=== PATIENT | female | born 1965 | race Caucasian/White ===

== ENCOUNTER 2020-06-18 11:11 | Emergency (ER) | payer BC ==
[2020-06-18] MEDS ORDERED: Sodium Chloride 0.9% 10 ML Syringe FLUSH PRN (12:29)
--- NOTE | 2020-06-18 12:38 | EDM.PDOC ---
ED HPI GENERAL MEDICAL PROBLEM - General Chief Complaint: Gastrointestinal Problem Stated Complaint: Blood in Stool Time Seen by Provider: 06/18/20 12:10 Source of Information: Reports: Patient History Limitations: Reports: No Limitations - History of Present Illness INITIAL COMMENTS - FREE TEXT/NARRATIVE: Zainab comes into [facility] ED with concerns for seeing BRB in the toilet this am. She became ill with "burning eyes", malaise, and loss of appetite 4 days ago upon returning from a [place] outing. Sxs persisted for the next 2 days, with diarrhea emerging at about 4 stools per day, without abdominal pain, fever, chills, or sweats. Sxs have escalaed over the past 2 days, with vomiting and diarrhea overnight. She did talk with a provider about managment yesterday, and a Covid test was obtained, results pending. She passed BRB this am without stool, significance unknown. She has had a MELISA and GB surgery in the past. abdomen Pain Score (Numeric/FACES): 6 - Related Data Allergies Allergy/AdvReac Type Severity Reaction Status Date / Time No Known Allergies Allergy Verified 06/18/20 12:15 Home Meds: Home Meds Famotidine 20 mg PO DAILY 06/18/20 [History] Lisinopril/Hydrochlorothiazide [Lisinopril-Hctz 20-25 mg Tab] 1 each PO DAILY 06/18/20 [History] OXcarbazepine [Trileptal] 300 mg PO DAILY 06/18/20 [History] Venlafaxine HCl [Venlafaxine ER] 37.5 mg PO DAILY 06/18/20 [History] Venlafaxine HCl [Venlafaxine ER] 75 mg PO DAILY 06/18/20 [History] ED ROS GENERAL - Review of Systems Review Of Systems: See Below Constitutional: Reports: Malaise, Weakness, Decreased Appetite HEENT: Reports: Other (eyes feel like the're burning) Respiratory: Reports: No Symptoms Cardiovascular: Reports: No Symptoms Endocrine: Reports: Fatigue GI/Abdominal: Reports: Diarrhea, Decreased Appetite, Nausea, Vomiting : Reports: No Symptoms Musculoskeletal: Reports: No Symptoms Skin: Reports: No Symptoms Neurological: Reports: No Symptoms Psychiatric: Reports: No Symptoms Hematologic/Lymphatic: Reports: No Symptoms Immunologic: Reports: No Symptoms ED EXAM, GI/ABD - Physical Exam Exam: See Below Exam Limited By: No Limitations General Appearance: Alert, WD/WN, Mild Distress Eyes: Bilateral: Normal Appearance, EOMI Ears: Normal External Exam Nose: Normal Inspection Throat/Mouth: Normal Inspection, Normal Oropharynx Head: Normocephalic Neck: Normal Inspection, Supple, Non-Tender Respiratory/Chest: Lungs Clear, Normal Breath Sounds, Chest Non-Tender Cardiovascular: Normal Peripheral Pulses, Regular Rate, Rhythm, No Murmur GI/Abdominal Exam: Normal Bowel Sounds, Soft, No Organomegaly, No Distention, No Mass, Tender (LLQ) (Female) Exam: Deferred Rectal (Female) Exam: Deferred Back Exam: Normal Inspection Extremities: Normal Inspection Neurological: Alert, Oriented, CN II-XII Intact, Normal Cognition, No Motor/ Sensory Deficits Psychiatric: Normal Affect, Normal Mood Skin Exam: Warm, Dry, Intact, Normal Color, No Rash Lymphatic: No Adenopathy Course - Vital Signs Text/Narrative:: Following assessment, I started an IV LUE and administered 2L of NS over the next 3 hours. Labs included Hgb 14.3 gm, WBC 15,600, plts normal, there was a Left shift; Na 124, K 4.2, Cl 87, BUN 20, Cr .9, Lactic acid .9, CRP 1.7, UA noted sp gr 1.030, Ket 3+; an ABD PELVIC CT w contrast noted swelling of distal transverse colon, splenic flexure, and descending colon to the sigmoid, consistent with colitis. Attempts at securing a stool specimen for C.Diff and Culture were unsuccessful. Case was discussed with Dr Randle at [facility], and she will be transferred by POV. Last Recorded V/S: Last Vital Signs Temp 36.6 C 06/18/20 11:25 Pulse 87 06/18/20 13:20 Resp 16 06/18/20 13:20 BP 193/82 H 06/18/20 13:20 Pulse Ox 100 06/18/20 13:20 - Orders/Labs/Meds Orders: Active Orders 24 hr Category Date Time Status C DIFFICILE AG/TOXIN W/REFLEX [RM] Stat Lab 06/18/20 15:44 Ordered CORONAVIRUS COVID-19, RAFFAELE Urgent Lab 06/18/20 16:09 Ordered STOOL CULTURE Urgent Lab 06/18/20 15:44 Ordered Sodium Chloride 0.9% [Normal Saline] 1,000 ml Med 06/18/20 12:45 Active IV ASDIRECTED Sodium Chloride 0.9% [Normal Saline] 1,000 ml Med 06/18/20 16:00 Active IV ASDIRECTED Sodium Chloride 0.9% [Saline Flush] Med 06/18/20 12:29 Active 10 ml FLUSH ASDIRECTED PRN Peripheral IV Insertion Adult [OM.PC] Routine Oth 06/18/20 12:29 Ordered Medication Orders Sodium Chloride (Normal Saline) 1,000 mls @ 500 mls/hr IV ASDIRECTED RODNEY Last Admin: 06/18/20 13:00 Dose: 500 mls/hr Documented by: CARIE Sodium Chloride (Normal Saline) 1,000 mls @ 500 mls/hr IV ASDIRECTED RODNEY Sodium Chloride (Saline Flush) 10 ml FLUSH ASDIRECTED PRN PRN Reason: Keep Vein Open Last Admin: 06/18/20 12:55 Dose: 10 ml Documented by: CARIE Labs: Laboratory Tests 06/18/20 06/18/20 06/18/20 Range/Units 12:31 12:45 12:45 WBC 15.6 H (4.5-12.0) X10-3/uL RBC 5.14 (3.23-5.20) x10(6)uL Hgb 14.3 (11.5-15.5) g/dL Hct 43.6 (30.0-51.3) % MCV 84.8 (80-96) fL MCH 27.9 (27.7-33.6) pg MCHC 32.9 (32.2-35.4) g/dL RDW 13.2 (11.5-15.5) % Plt Count 320 (125-369) X10(3)uL MPV 7.8 (7.4-10.4) fL Add Manual Diff Yes Neutrophils % (Manual) 89 H (46-82) % Band Neutrophils % 1 (0-6) % Lymphocytes % (Manual) 9 L (13-37) % Monocytes % (Manual) 1 L (4-12) % Sodium 124 L (135-145) mmol/L Potassium 4.2 (3.5-5.3) mmol/L Chloride 87 L* (100-110) mmol/L Carbon Dioxide 31 (21-32) mmol/L BUN 20 H (7-18) mg/dL Creatinine 0.9 (0.55-1.02) mg/dL Est Cr Clr Drug Dosing TNP Estimated GFR (MDRD) > 60 (>60) BUN/Creatinine Ratio 22.2 H (9-20) Glucose 142 H (80-116) mg/dL Lactic Acid (0.4-2.0) mmol/L Calcium 9.8 (8.6-10.2) mg/dL Total Bilirubin 0.3 (0.1-1.3) mg/dL AST 17 (5-25) IU/L ALT 27 (12-36) U/L Alkaline Phosphatase 185 H (56-112) IU/L C-Reactive Protein (0.5-0.9) mg/dL Total Protein 8.5 H (6.0-8.0) g/dL Albumin 4.3 (3.5-5.2) g/dL Globulin 4.2 g/dL Albumin/Globulin Ratio 1.0 Urine Color Yellow (YELLOW) Urine Appearance Cloudy (CLEAR) Urine pH 5.0 (5.0-6.5) Ur Specific [place]on 1.030 H (1.010-1.025) Urine Protein 30 H (NEGATIVE) mg/dL Urine Glucose (UA) 50 H (NORMAL) mg/dL Urine Ketones 150 H (NEGATIVE) mg/dL Urine Occult Blood Negative (NEGATIVE) Urine Nitrite Negative (NEGATIVE) Urine Bilirubin Negative (NEGATIVE) Urine Urobilinogen Normal (NEGATIVE) mg/dL Ur Leukocyte Esterase Negative (NEGATIVE) Urine WBC 0-5 (0-5) Ur Squamous Epith Cells Few H (NS,R,O) Amorphous Sediment Moderate Urine Bacteria Many H (NS) 06/18/20 06/18/20 Range/Units 12:45 12:45 WBC (4.5-12.0) X10-3/uL RBC (3.23-5.20) x10(6)uL Hgb (11.5-15.5) g/dL Hct (30.0-51.3) % MCV (80-96) fL MCH (27.7-33.6) pg MCHC (32.2-35.4) g/dL RDW (11.5-15.5) % Plt Count (125-369) X10(3)uL MPV (7.4-10.4) fL Add Manual Diff Neutrophils % (Manual) (46-82) % Band Neutrophils % (0-6) % Lymphocytes % (Manual) (13-37) % Monocytes % (Manual) (4-12) % Sodium (135-145) mmol/L Potassium (3.5-5.3) mmol/L Chloride (100-110) mmol/L Carbon Dioxide (21-32) mmol/L BUN (7-18) mg/dL Creatinine (0.55-1.02) mg/dL Est Cr Clr Drug Dosing Estimated GFR (MDRD) (>60) BUN/Creatinine Ratio (9-20) Glucose (80-116) mg/dL Lactic Acid 0.9 (0.4-2.0) mmol/L Calcium (8.6-10.2) mg/dL Total Bilirubin (0.1-1.3) mg/dL AST (5-25) IU/L ALT (12-36) U/L Alkaline Phosphatase (56-112) IU/L C-Reactive Protein 1.7 H (0.5-0.9) mg/dL Total Protein (6.0-8.0) g/dL Albumin (3.5-5.2) g/dL Globulin g/dL Albumin/Globulin Ratio Urine Color (YELLOW) Urine Appearance (CLEAR) Urine pH (5.0-6.5) Ur Specific [place] (1.010-1.025) Urine Protein (NEGATIVE) mg/dL Urine Glucose (UA) (NORMAL) mg/dL Urine Ketones (NEGATIVE) mg/dL Urine Occult Blood (NEGATIVE) Urine Nitrite (NEGATIVE) Urine Bilirubin (NEGATIVE) Urine Urobilinogen (NEGATIVE) mg/dL Ur Leukocyte Esterase (NEGATIVE) Urine WBC (0-5) Ur Squamous Epith Cells (NS,R,O) Amorphous Sediment Urine Bacteria (NS) Meds: Medications Generic Name Dose Route Start Last Admin Trade Name Freq PRN Reason Stop Dose Admin Sodium Chloride 1,000 mls @ 500 mls/hr 06/18/20 12:45 06/18/20 13:00 Normal Saline IV 500 mls/hr ASDIRECTED RODNEY Administration Sodium Chloride 1,000 mls @ 500 mls/hr 06/18/20 16:00 Normal Saline IV ASDIRECTED RODNEY Sodium Chloride 10 ml 06/18/20 12:29 06/18/20 12:55 Saline Flush FLUSH 10 ml ASDIRECTED PRN Administration Keep Vein Open Discontinued Medications Generic Name Dose Route Start Last Admin Trade Name Ace PRN Reason Stop Dose Admin Diatrizoate Meglum/Diatrizoate Sod 30 ml 06/18/20 13:23 Gastrografin 37% PO 06/18/20 13:24 . DIRECTED ONE Iopamidol 100 ml 06/18/20 13:23 Isovue-370 (76%) IV 06/18/20 13:24 . DIRECTED ONE Ondansetron HCl 8 mg 06/18/20 12:40 06/18/20 13:00 Zofran IVPUSH 06/18/20 12:41 8 mg ONETIME ONE Administration Departure - Departure Time of Disposition: 17:20 Disposition: DC/Tfer to Other 70 Condition: Fair Clinical Impression: Colitis, nonspecific, Hyponatremia, Trigeminal neuralgia of right side of face Hypertension Qualifiers: Hypertension type: essential hypertension Qualified Code(s): I10 - Essential (primary) hypertension - Discharge Information *PRESCRIPTION DRUG MONITORING PROGRAM REVIEWED*: Not Applicable *COPY OF PRESCRIPTION DRUG MONITORING REPORT IN PATIENT JENNIFER: Not Applicable Referrals: Kristina Marrero INSTITUTIONAL RESEARCH DIRECTOR [Primary Care Provider] - Forms: ED Department Discharge Sepsis Event Note (ED) - Focused Exam Vital Signs: Vital Signs Temp Pulse Resp BP Pulse Ox 06/18/20 13:20 87 16 193/82 H 100 06/18/20 11:25 36.6 C 75 18 187/93 H 100 - Problem List & Annotations (1) Colitis, nonspecific SNOMED Code(s): 281552469 Code(s): K52.9 - NONINFECTIVE GASTROENTERITIS AND COLITIS, UNSPECIFIED Status: Acute Current Visit: Yes Annotation/Comment:: Transfer to [facility] for further GI assessment and management (2) Hyponatremia SNOMED Code(s): 62510402 Code(s): E87.1 - HYPO-OSMOLALITY AND HYPONATREMIA Status: Acute Current Visit: Yes Annotation/Comment:: Parenteral denominational with IV NS and diet as tolerated - Problem List Review Problem List Initiated/Reviewed/Updated: Yes - My Orders Last 24 Hours: My Active Orders 06/18/20 12:29 Sodium Chloride 0.9% [Saline Flush] 10 ml FLUSH ASDIRECTED PRN Peripheral IV Insertion Adult [OM.PC] Routine 06/18/20 12:45 Sodium Chloride 0.9% [Normal Saline] 1,000 ml IV ASDIRECTED 06/18/20 15:44 C DIFFICILE AG/TOXIN W/REFLEX [RM] Stat STOOL CULTURE Urgent 06/18/20 16:00 Sodium Chloride 0.9% [Normal Saline] 1,000 ml IV ASDIRECTED 06/18/20 16:09 CORONAVIRUS COVID-19, RAFFAELE Urgent - Assessment/Plan Last 24 Hours: My Active Orders 06/18/20 12:29 Sodium Chloride 0.9% [Saline Flush] 10 ml FLUSH ASDIRECTED PRN Peripheral IV Insertion Adult [OM.PC] Routine 06/18/20 12:45 Sodium Chloride 0.9% [Normal Saline] 1,000 ml IV ASDIRECTED 06/18/20 15:44 C DIFFICILE AG/TOXIN W/REFLEX [RM] Stat STOOL CULTURE Urgent 06/18/20 16:00 Sodium Chloride 0.9% [Normal Saline] 1,000 ml IV ASDIRECTED 06/18/20 16:09 CORONAVIRUS COVID-19, RAFFAELE Urgent Plan: Follow up with PCP upon return from [place].
[2020-06-18] MEDS ORDERED: Ondansetron 4 MG/2 ML SDV IVPUSH ONE (12:40)
[2020-06-18] MEDS ORDERED: Sodium Chloride 0.9% 1,000 ML IV SCH ×2 (12:45→16:00)
[2020-06-18] MEDS ORDERED: Iopamidol 755 Mg/ML 100 ML Bottle IV ONE (13:23)
[2020-06-18] MEDS ORDERED: Diatrizoate Meglumine/Diatrizoate Sodium 37% 30 ML Bottle PO ONE (13:23)
--- NOTE | 2020-06-18 16:37 | CT ---
INDICATION: Vomiting x12 hours with diarrhea x36 hours, question diverticulitis. CT ABDOMEN AND PELVIS WITH CONTRAST: Spiral 3.75 mm axial sections were obtained through the abdomen and pelvis with oral and IV contrast (100 mL Isovue-370 at 2 mL per second) with sagittal and coronal reconstructions 06/18/20 and compared with 07/22/14. Total exam DLP was 1480.41 mGy-cm. There are some linear densities again noted at the left lung base at the lower lobe and lingula, most likely fibrotic in nature. A definite active infiltrate or effusion was not identified. The heart did not appear significantly enlarged, but did appear to be near the upper limits of normal in size. No pericardial effusion was seen. A small fixed hiatal hernia may be present. The liver was unremarkable except to note clips in the gallbladder bed compatible with cholecystectomy. Common bile duct was normal in caliber at head of the pancreas - the pancreas appeared normal. The spleen, adrenal glands, and kidneys appeared normal. The kidneys appeared normal except to note a tiny low-density lesion at the lower pole of the left kidney which likely represents a tiny simple cyst. A dextroconcave scoliosis at the lower lumbar spine is noted and is more severe than on the previous study. Progressive hypertrophic degenerative changes are noted in the lower thoracic spine with hypertrophic lipping and probable disk disease at severe levels with vacuum disk phenomena. 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 Beginning at the distal transverse colon and extending into the mid sigmoid colon, there is thickening of the wall of the colon. This is most severe in the descending colon and especially the mid to distal descending colon. In those areas there is pericolonic fat stranding suggesting localized peritonitis. Findings may be on the basis of colitis with the possibility of infectious versus ulcerative colitis versus Crohn's disease to be considered. No evidence of free air or bowel obstruction was identified. There is noted relative distention of the stomach which is likely on the basis of administration of the oral contrast. The appendix appeared normal, visualized on coronal images 48 through 56. No evidence of free air or definite bowel obstruction was identified. Retroperitoneal lymphadenopathy is noted which appears to be increased in prominence compared with the previous study to a mild degree and could be related to infection in this patient. IMPRESSION: 1. Findings are compatible with colitis and localized peritonitis in the descending colon with thickening of the lining extending into the distal transverse colon and mid sigmoid areas, etiology of the colitis is indeterminate. 2. Post hysterectomy. 3. Post cholecystectomy. 4. Slightly increased dextroconcave lower lumbar scoliosis, and definitely increased hypertrophic degenerative changes and disk disease in the lower thoracic spine visualized. 5. Tiny probable simple cyst at the lower pole of the left kidney. 6. Retroperitoneal lymphadenopathy although still within the [id number] range and indeterminate in nature, does appear to be increased in this patient. Report was given in person to Dr. Ulloa at approximately 1543 hours. [facility]
== END 2020-06-18 18:45 | disposition other institution (70) ==
LOC: FB.ED 11:11
DX: K52.9 Noninfective gastroenteritis and colitis, unspecified (principal); E87.1 Hypo-osmolality and hyponatremia; G50.0 Trigeminal neuralgia; I10 Essential (primary) hypertension; Z79.899 Other long term (current) drug therapy
CPT/HCPCS: 36415; 74177; 80053; 81001; 83605; 85025; 86140; 87045; 87046; 87230; 87427; 96361; 96374; 99285; J2405; J7030; Q9963